=== PATIENT | female | born 1970 | race Caucasian/White ===

== ENCOUNTER 2017-11-08 18:40 | Emergency (ER) | payer OTHER ==
[2017-11-08] MEDS ORDERED: KETOROLAC 30 MG/ML VIAL IVP ONE (18:48)
[2017-11-08] MEDS ORDERED: ONDANSETRON HCL IV 4 MG/2 ML VIAL IVP ONE (18:48)
--- NOTE | 2017-11-08 18:55 | Emergency Department Record ---
History of Present Illness - General Chief Complaint: Abdominal Pain Stated Complaint: ABDOMINAL PAIN Time Seen by Provider: 11/08/17 18:47 Source: Patient Mode of Arrival: Ambulatory Limitations: No limitations - History of Present Illness Initial Comments: 47 yo female presents to ED for evaluation of RLQ pain symptoms that began approximately 4 hours ago, sudden onset. Patient reports pain to the right flank as well, denies fevers, chills, or vomiting symptoms. Patient currently rates her pain at 4/10. Patient denies urinary symptoms, and reports previous hernia repair as a child as well as . Patient denies health problems at her baseline. MD Complaint: Abdominal pain Onset/Timin -: Hour(s) Location: RLQ Radiation: Back Severity: Mild Severity scale (1-10): 4 Quality: Aching Consistency: Constant Improves With: Nothing Worsens With: Nothing Associated Symptoms: Denies other symptoms - Related Data Patient : No Previous Rx's Medication Instructions Recorded Polyethylene Glycol 3350 [Miralax] 1 packet PO DAILY #30 packet 11/08/17 Allergies Allergy/AdvReac Type Severity Reaction Status Date / Time hydromorphone HCl Allergy Mild rash Verified 11/08/17 18:48 [From Dilaudid] morphine Allergy Mild RASH Verified 11/08/17 18:48 Sulfa (Sulfonamide Allergy Mild RASH Verified 11/08/17 18:48 Antibiotics) Travel Screening - Travel/Exposure Within Last 30 Days Have you traveled within the last 30 days?: No Review of Systems Constitutional: Denies: Chills, Fever, Malaise, Night sweats Eyes: Denies: Eye discharge, Eye pain ENT: Denies: Congestion, Ear pain, Epistaxis Respiratory: Denies: Cough, Dyspnea Cardiovascular: Denies: Chest pain, Dyspnea on exertion Endocrine: Denies: Fatigue, Heat or cold intolerance Gastrointestinal: Reports: Abdominal pain. Denies: Nausea, Vomiting Genitourinary: Denies: Incontinence, Retention Musculoskeletal: Reports: Back pain. Denies: Arthralgia, Gout, Joint swelling Skin: Denies: Bruising, Change in color Neurological: Denies: Abnormal gait, Confusion, Headache Psychiatric: Denies: Anxiety Hematological/Lymphatic: Denies: Anemia, Blood Clots Past Medical History - SOCIAL HISTORY Smoking Status: Never smoker Alcohol Use: None Drug Use: None - RESPIRATORY Hx Respiratory Disorders: Yes Hx Pulmonary Embolism: Yes - CARDIOVASCULAR Hx Cardio Disorders: Yes Hx Hypertension: Yes - NEURO Hx Neuro Disorders: No - GI Hx GI Disorders: Yes Comment:: ulcerativecolitis - Hx Genitourinary Disorders: No - ENDOCRINE Hx Endocrine Disorders: No - MUSCULOSKELETAL Hx Musculoskeletal Disorders: No - PSYCH Hx Psych Problems: Yes Hx Depression: Yes - HEMATOLOGY/ONCOLOGY Hx Hematology/Oncology Disorders: Yes Comment:: Protien S difficiency Family Medical History Any Significant Family History?: Yes Hx Cancer: Brother/Sister, Grandparents Hx HTN: Mother, Grandparents Hx Resp Disorders: Father Hx Stroke: Mother, Grandparents Physical Exam - General General Appearance: Alert, Oriented x3, Cooperative, Mild distress Limitations: No limitations - Head Head exam: Atraumatic, Normocephalic, Normal inspection Head exam detail: negative: Abrasion, Contusion, [place]'s sign, General tenderness, Hematoma, Laceration - Eye Eye exam: Normal appearance. negative: Conjunctival injection, Periorbital swelling, Periorbital tenderness, Scleral icterus - ENT Ear exam: negative: Auricular hematoma, Auricular trauma Nasal Exam: negative: Active bleeding, Discharge, Dried blood, Foreign body Mouth exam: negative: Drooling, Laceration, Muffled voice, Tongue elevation - Neck Neck exam: Normal inspection. negative: Meningismus, Tenderness - Respiratory Respiratory exam: Normal lung sounds bilaterally. negative: Respiratory distress, Rhonchi, Stridor, Wheezes - Cardiovascular Cardiovascular Exam: Regular rate, Normal rhythm, Normal heart sounds - GI/Abdominal GI/Abdominal exam: Soft, Tenderness (TTP to the RLQ, no rebound or guarding are present on examination). negative: Distended, Organomegaly, Pulsatile mass, Rebound, Rigid - Rectal Rectal exam: Deferred - exam: Deferred - Extremities Extremities exam: Normal inspection. negative: Calf tenderness, Pedal edema, Tenderness - Back Back exam: Denies: CVA tenderness (R), CVA tenderness (L) - Neurological Neurological exam: Alert, Normal gait, Oriented X3 - Psychiatric Psychiatric exam: Normal affect, Normal mood - Skin Skin exam: Normal color. negative: Abrasion Type of lesion: negative: abrasion Course Vital Signs 11/08/17 18:44 Temperature 98.7 F Pulse Rate 81 Respiratory 20 Rate Blood Pressure 130/78 Pulse Ox 100 - Reevaluation(s) Reevaluation #1: 11/08/17 19:27 Labs reviewed and are grossly unremarkable for an acute process. Reevaluation #2: 11/08/17 20:32 CT Abdomen and Pelvis: Non-obstructing calculi in reggie kidneys bilaterally Normal appendix Dominant follicle left Stool throughout the colon. Patient was reassessed and reports improvement in her pain symptoms following Toradol, patient was updated on all results and appears stable for discharge with Miralax and instructions to return to ED for any worsening of her symptoms. Medical Decision Making - Lab Data Result diagrams: 11/08/17 18:50 11/08/17 18:50 Disposition Disposition: Discharge Clinical Impression: Abdominal pain Qualifiers: Abdominal location: right lower quadrant Qualified Code(s): R10.31 - Right lower quadrant pain Disposition: Home, Self-Care Condition: (2) Stable Instructions: Abdominal Pain (ED) Additional Instructions: Return to ED if your symptoms worsen or if you have any concerns. Miralax as directed. Follow-up with your family doctor in 1-3 days as directed. Prescriptions: Polyethylene Glycol 3350 [Miralax] 1 packet PO DAILY #30 packet Forms: Patient Portal Access Time of Disposition: 20:34 Quality - Quality Measures Quality Measures: N/A - Blood Pressure Screening Does Patient Have Any of the Following: No Blood Pressure Classification: Pre-Hypertensive BP Reading Systolic Measurement: 130 Diastolic Measurement: 78 Screening for High Blood Pressure: < Pre-Hypertensive BP, F/U Documented > [ G8950] Pre-Hypertensive Follow-up Interventions: Referral to alternative/primary care provider.
[2017-11-08] MEDS ORDERED: 0.9 % SODIUM CHLORIDE 1000ML 1,000 ML IV SCH (19:00)
[2017-11-08 19:04] LABS: BASO % 0.5 % (0-6); GRAN % 59.4 % (47-80); HEMATOCRIT 39.9 % (35.0-47.0); HEMOGLOBIN 13.6 gm/dl (11.6-16.0); LYMPH % 30.3 % (16-45); MEAN CELL VOLUME 92.1 fl (81-97); MEAN CORPUSCULAR HEMOGLOBIN 31.4 pg (27-33); MEAN CORPUSCULAR HGB CONC 34.1 g/dl (32-36); MEAN PLATELET VOLUME 9.4 fl (7.4-10.4); MONO % 9.8 % (0-9); PLATELET COUNT 237 K/uL (130-400); RED BLOOD COUNT 4.33 M/uL (3.80-5.40); RED CELL DISTRIBUTION WIDTH 13.6 % (11.5-14.5); WHITE BLOOD COUNT W/O DIFF 9.7 K/uL (4.2-12.2)
[2017-11-08 19:11] LABS: BLOOD UREA NITROGEN 12 mg/dL (6-20); CREATININE 0.9 mg/dL (0.5-0.9); EST GLOMERULAR FILTRATION RATE > 60 mL/min
[2017-11-08 19:14] LABS: GLUCOSE,RANDOM 91 mg/dL (74-109)
[2017-11-08 19:17] LABS: ALB/GLOB RATIO 1.8 (1.1-1.8); ALBUMIN 4.5 g/dL (4.0-5.0); ALKALINE PHOSPHATASE 67 U/L (35-104); ALT/SGPT 21 U/L (<33); AST/SGOT 23 U/L (10.0-35.0); LIPASE 37 U/L (13-60)
[2017-11-08 21:20] LABS: INR 3.3; PROTHROMBIN TIME (PATIENT) 36.2 SECONDS (9.5-12.1)
--- NOTE | 2017-11-10 08:29 | CT SCAN REPORT ---
EXAM: CT OF THE ABDOMEN AND PELVIS WITHOUT CONTRAST HISTORY: RIGHT SIDED PAIN. TECHNIQUE: CT of the abdomen and pelvis was performed without oral or IV contrast. This limits evaluation of bowel and solid visceral organs. Comparison: None. FINDINGS: Limited evaluation of the lung bases is unremarkable. The osseous structures are grossly intact. Limited evaluation of the liver, spleen, adrenal glands, pancreas, and kidneys is unremarkable. The gallbladder is present. There is a nonobstructing right renal calculus, measuring 4.2 mm. Punctate nonobstructing 1-2 mm left renal calculus, inferiorly. No obstructing calculus or hydronephrosis. No gross evidence for bowel obstruction. There is a large amount of stool in the colon. Normal appendix. No free air or free fluid. There is an IUD in place. Probable follicular change to the ovaries with a probable dominant follicle of the left ovary measuring 2.9 x 2.9 cm. Correlate with menstrual history. IMPRESSION: 1. NONOBSTRUCTING RENAL CALCULI BILATERALLY. NO HYDRONEPHROSIS OR OBSTRUCTING CALCULUS. 2. ABUNDANT STOOL IN THE COLON. 3. PROBABLE FOLLICULAR CHANGE TO THE OVARIES WITH A DOMINANT FOLLICLE OF THE LEFT OVARY. JOB NUMBER: [id number] [facility]
== END 2017-11-08 20:52 | disposition home or self-care (01) ==
LOC: ER 18:40
DX: R10.31 Right lower quadrant pain (principal); I10 Essential (primary) hypertension
CPT/HCPCS: 99284 ×2; 96374; 96361; 83690; 85025; 85610; 80053; 74176; J1885; J7030